=== PATIENT | female | born 1960 | race Caucasian/White ===

== ENCOUNTER 2016-08-30 19:14 | Emergency (ER) | payer OTHER ==
[~2016-08-30] VITALS: Ht 162.6 cm; Wt 82.6 kg
[2016-08-30 19:24] VITALS: BP_SYST 152
[2016-08-30] MEDS ORDERED: ASPI-1063 PO (19:36)
--- NOTE | 2016-08-30 20:29 | NUR ---
Patient seen and examined by Tamela CLIFFORD, order for EKG obtained
--- NOTE | 2016-08-30 20:40 | NUR ---
Patient to ER bed 7 for evaluation. Side rails up. Report given to VICKI العراقي
--- NOTE | 2016-08-30 21:00 | NUR ---
Patient to ED for eval of palpitations-patient denies CP/SOB. Awaiting evaluation by ER MD. will continue to observe and assess
[2016-08-30 22:03] LABS: BASOPHILS # (AUTO) 0.1 K/uL (0.0-0.2); BASOPHILS % (AUTO) 0.6 % (0.0-2.0); EOSINOPHILS # (AUTO) 0.2 K/uL (0.0-0.4); EOSINOPHILS % (AUTO) 1.5 % (0.0-4.0); HEMATOCRIT 38.7 % (36-48); HEMOGLOBIN 13.1 g/dL (12.0-16.0); LYMPHOCYTES # (AUTO) 2.9 K/uL (1.0-5.5); LYMPHOCYTES % (AUTO) 22.8 % (20.5-51.5); MEAN CORPUSCULAR HEMOGLOBIN 30 pg (27-31); MEAN CORPUSCULAR HGB CONC 34 % (32-36); MEAN CORPUSCULAR VOLUME 88 fL (79.0-98.0); MONOCYTES # (AUTO) 0.7 K/uL (0.0-1.0); MONOCYTES % (AUTO) 5.7 % (1.7-9.3); NEUTROPHILS # (AUTO) 8.9 K/uL (1.8-7.7); NEUTROPHILS % (AUTO) 69.4 % (40.0-70.0); PLATELET COUNT (AUTO) 302 K/uL (130-430); RED CELL DISTRIBUTION WIDTH 11.8 % (9.0-15.0); WHITE BLOOD COUNT (AUTO) 12.8 K/uL (4.8-10.8)
[2016-08-30 22:13] LABS: CALCIUM 9.4 mg/dL (8.4-11.0); CREATININE 1.26 mg/dL (0.55-1.30)
[2016-08-30 22:20] LABS: BILIRUBIN,URINE NEGATIVE (NEGATIVE); BLOOD, URINE 1+ (NEGATIVE); CLARITY/URINE CLEAR (CLEAR); COLOR,URINE YELLOW (YELLOW); GLUCOSE,URINE NEGATIVE (NEGATIVE); KETONES,URINE NEGATIVE (NEGATIVE); LEUKOCYTE ESTERASE ,URINE TRACE (NEGATIVE); NITRITE, URINE NEGATIVE (NEGATIVE); PH,URINE 5.5 (5.0-8.0); PROTEIN URINE NEGATIVE (NEGATIVE); UROBILINOGEN,URINE 0.2 (0.2-1.0)
[2016-08-30 22:29] LABS: ALBUMIN 3.9 g/dL (3.4-4.8); TOTAL BILIRUBIN 0.2 mg/dL (0.0-1.0); TOTAL PROTEIN, SERUM 8.2 g/dL (6.4-8.3)
[2016-08-30 22:44] LABS: BACTERIA,URINE FEW /HPF (None Seen); MUCUS,URINE None Seen /LPF (None Seen)
[2016-08-30] MEDS ORDERED: cefTRIAXone 1 GM IVPB PREMIX 50 ML IV ONE (22:45)
--- NOTE | 2016-08-30 23:23 | NUR ---
IV ABX INFUSING WITHOUT DIFFICULTY, NO REDNESS OR SWELLING NOTED AT SITE. PATIENT RESTING QUIETLY IN NAD, RESPIRATIONS EVEN AND UNLABORED
[2016-08-30 23:50] VITALS: BP_SYST 150
--- NOTE | 2016-08-30 23:50 | NUR ---
Patient given written and verbal discharge instructions and verbalizes understanding. ER MD discussed with patient the results and treatment provided. Patient in stable condition. ID arm band removed. IV catheter removed intact and dressing applied, no active bleeding. Rx of Macrobid cap given. Patient educated on pain management and to follow up with PMD. Pain Scale 0/10. Opportunity for questions provided and answered.
== END 2016-08-30 23:50 | disposition home or self-care (01) ==
LOC: SED 19:14
DX: R07.89 Other chest pain (principal); N39.0 Urinary tract infection, site not specified; Z86.73 Personal history of transient ischemic attack (TIA), and cerebral infarction without residual deficits; Z90.710 Acquired absence of both cervix and uterus; Z88.5 Allergy status to narcotic agent; Z88.1 Allergy status to other antibiotic agents
CPT/HCPCS: 36415; 71010; 80053; 81000; 84443; 84484; 85025; 87040; 87086; 93005; 96365; 99285; J0696